=== PATIENT | female | born 1960 ===

== ENCOUNTER 2020-03-17 15:24 | Inpatient (IN) ==
[~2020-03-17 15:24] MED LIST: Dexamethasone IV 4 MG/ML VIAL 1 ml VIAL ONE; Midazolam 2 mg/2 ml VIAL 1 mg/ml 2 ml VIAL (2 mg) ONE; Ondansetron 4 mg VIAL 2 MG/ML 2 ml VIAL ONE; Propofol 10 MG/ML 20 ML BTL ONE; fentaNYL 100 mcg/2 ml 50 MCG/ML VIAL ONE
[2020-03-17] MEDS ORDERED: Naloxone 0.4 mg VIAL 0.4 mg/ml 1 ml VIAL IV PRN (17:39)
[2020-03-17] MEDS ORDERED: HYDROcodone/ACETAMIN 5/325 mg TAB PO PRN (17:39)
[2020-03-17] MEDS ORDERED: Prochlorperazine 5 mg/ml 2 ml VIAL (10 mg) IV PRN (17:39)
[2020-03-17] MEDS ORDERED: Lidocaine 2% PF 5 ML VIAL ONE (17:51)
[2020-03-17] MEDS ORDERED: fentaNYL 100 mcg/2 ml 50 MCG/ML VIAL ONE ×3 (17:51→20:06)
[2020-03-17] MEDS ORDERED: Midazolam 2 mg/2 ml VIAL 1 mg/ml 2 ml VIAL (2 mg) ONE (17:51)
[2020-03-17] MEDS ORDERED: Propofol 10 MG/ML 20 ML BTL ONE (17:53)
[2020-03-17] MEDS ORDERED: Lactulose 30 ml UDC PO PRN (17:56)
[2020-03-17] MEDS ORDERED: diPHENhydraMINE IV 50 MG/ML 1 ml VIAL (BENADRYL) IV PRN (17:56)
[2020-03-17] MEDS ORDERED: Ondansetron 4 mg VIAL 2 MG/ML 2 ml VIAL IV PRN (17:56)
[2020-03-17] MEDS ORDERED: Magnesium Hydroxide LIQ 30 ML UDC PO PRN (17:56)
[2020-03-17] MEDS ORDERED: diPHENhydraMINE 25 mg TAB PO PRN (17:56)
[2020-03-17] MEDS ORDERED: oxyCODONE/Acetamin 5/325 mg TAB PO PRN ×2 (17:56)
[2020-03-17] MEDS ORDERED: Ondansetron ODT 4 mg TAB 4 MG TAB PO PRN (17:56)
[2020-03-17] MEDS ORDERED: Morphine 2 MG/ML SYRINGE IV PRN (17:56)
[2020-03-17] MEDS ORDERED: Dexamethasone IV 4 MG/ML VIAL 1 ml VIAL ONE (18:31)
[2020-03-17] MEDS ORDERED: Ketamine HCL 50 mg/ml 10 ml VIAL (500 MG) ONE (18:42)
[2020-03-17] MEDS ORDERED: ceFAZolin VIAL VIAL ONE (19:07)
[2020-03-17] MEDS ORDERED: ceFAZolin 2 GM PREMIX 2 GM/50 ML BAG ONE (19:09)
[2020-03-17] MEDS ORDERED: Ondansetron 4 mg VIAL 2 MG/ML 2 ml VIAL ONE (19:13)
[2020-03-17] MEDS: fentaNYL 100 mcg/2 ml 50 MCG/ML VIAL IV PRN ×2 (20:10→20:25)
[2020-03-17 20:49] LABS: ABS Basophils 0.1 10^3/ul (0-0.2); ABS Lymphocytes 0.8 10^3/ul (1.0-4.8); ABS Monocytes 0.5 10^3/ul (0-0.8); Eosinophil % 0.1 %; Hematocrit 32 % (35-47); Hemoglobin 10.7 g/dL (12.0-16.0); Lymphocyte % 4.6 %; Mean Corpuscular HGB Conc 33 g/dL (31-36); Mean Corpuscular Hemoglobin 28 pg (27-31); Mean Corpuscular Volume 85 fL (80-97); Mean Platelet Volume 8.7 fL (7.4-10.4); Platelet Count 258 10^3/uL (150-450); Red Blood Count 3.83 10^6 /uL (3.70-4.87); Red Cell Distribution Width 13 % (10-15); White Blood Count 16.3 10^3/uL (3.5-10.8)
[2020-03-17] MEDS: Lactated Ringers 1000 ml BAG 1,000 ML IV SCH (22:32)
[2020-03-18] MEDS: ceFAZolin 1 GM ADVAN 1 GM in NS 0.9% 50 ML 50 ML IVPB SCH ×3 (03:04→20:22)
[2020-03-18 05:02] LABS: ABS Lymphocytes 0.4 10^3/ul (1.0-4.8); ABS Monocytes 0.4 10^3/ul (0-0.8); ABS Neutrophils 11.9 10^3/ul (1.5-7.7); Hematocrit 32 % (35-47); Hemoglobin 10.8 g/dL (12.0-16.0); Lymphocyte % 3.4 %; Mean Corpuscular HGB Conc 33 g/dL (31-36); Mean Corpuscular Hemoglobin 28 pg (27-31); Mean Corpuscular Volume 84 fL (80-97); Mean Platelet Volume 8.4 fL (7.4-10.4); Platelet Count 299 10^3/uL (150-450); Red Blood Count 3.85 10^6 /uL (3.70-4.87); Red Cell Distribution Width 13 % (10-15); White Blood Count 12.7 10^3/uL (3.5-10.8)
[2020-03-18 05:14] LABS: BUN/Creatinine Ratio 22.2 (8-20); Calcium 9.5 mg/dL (8.6-10.3); EGFR Non-African American 96.7 (>60); Potassium 4.3 mmol/L (3.5-5.0)
[2020-03-18] MEDS: Vitamin THERAPEUTIC TAB PO SCH (09:01)
[2020-03-18] MEDS: Lactated Ringers 1000 ml BAG 1,000 ML IV SCH (09:04)
[2020-03-19] MEDS: ceFAZolin 1 GM ADVAN 1 GM in NS 0.9% 50 ML 50 ML IVPB SCH (03:30)
[2020-03-19 07:14] LABS: ABS Eosinophils 0.1 10^3/ul (0-0.6); ABS Monocytes 0.6 10^3/ul (0-0.8); ABS Neutrophils 6.4 10^3/ul (1.5-7.7); Eosinophil % 0.7 %; Hematocrit 30 % (35-47); Lymphocyte % 22.1 %; Mean Corpuscular HGB Conc 33 g/dL (31-36); Mean Corpuscular Hemoglobin 28 pg (27-31); Mean Corpuscular Volume 85 fL (80-97); Mean Platelet Volume 8.9 fL (7.4-10.4); Platelet Count 284 10^3/uL (150-450); Red Blood Count 3.56 10^6 /uL (3.70-4.87); Red Cell Distribution Width 13 % (10-15); White Blood Count 9.1 10^3/uL (3.5-10.8)
[2020-03-19 07:30] LABS: C Reactive Protein 70.62 mg/L (<8.01); Calcium 9.3 mg/dL (8.6-10.3); EGFR African American 121.5 (>60); EGFR Non-African American 100.4 (>60); Potassium 4.2 mmol/L (3.5-5.0)
[2020-03-19] MEDS: Vitamin THERAPEUTIC TAB PO SCH (09:18)
[2020-03-19] MEDS ORDERED: NS 0.9% 1000 ml BAG 1,000 ML IV SCH (10:30)
[2020-03-19] MEDS: cefTRIAXone 2 GM ADDV.VIAL 2 GM in NS 0.9% 100 ml BAG 100 ML IV SCH (11:56)
[2020-03-20 05:48] LABS: ABS Eosinophils 0.1 10^3/ul (0-0.6); ABS Lymphocytes 1.9 10^3/ul (1.0-4.8); ABS Monocytes 0.5 10^3/ul (0-0.8); ABS Neutrophils 4.2 10^3/ul (1.5-7.7); Eosinophil % 1.6 %; Hematocrit 34 % (35-47); Hemoglobin 11.2 g/dL (12.0-16.0); Lymphocyte % 29.1 %; Mean Corpuscular HGB Conc 33 g/dL (31-36); Mean Corpuscular Hemoglobin 27 pg (27-31); Mean Corpuscular Volume 84 fL (80-97); Platelet Count 370 10^3/uL (150-450); Red Blood Count 4.09 10^6 /uL (3.70-4.87); Red Cell Distribution Width 13 % (10-15); White Blood Count 6.7 10^3/uL (3.5-10.8)
[2020-03-20 06:07] LABS: BUN/Creatinine Ratio 17.7 (8-20); C Reactive Protein 34.7 mg/L (<8.01); Calcium 9.8 mg/dL (8.6-10.3); EGFR African American 119.2 (>60); EGFR Non-African American 98.5 (>60); Potassium 4.1 mmol/L (3.5-5.0)
[2020-03-20] MEDS: Vitamin THERAPEUTIC TAB PO SCH (09:57)
[2020-03-20] MEDS: cefTRIAXone 2 GM ADDV.VIAL 2 GM in NS 0.9% 100 ml BAG 100 ML IV SCH (11:43)
[2020-03-20] MEDS ORDERED: Buffered Lidocaine 1% SYRIN 1 ml INTRADERM ONE (11:43)
[2020-03-20 11:44] VITALS: BP 148/90
== END 2020-03-20 16:25 | disposition home health service (06) | DRG 711 ==
LOC: OR 15:24 → SSU 21:08
PROVIDERS: ADMIT Orthopaedic Surgery; ATTEND Orthopaedic Surgery

== ENCOUNTER 2021-05-26 17:01 | Observation (INO) ==
[2021-05-26 18:43] LABS: ABS Lymphocytes 0.5 10^3/ul (1.0-4.8); ABS Monocytes 0.9 10^3/ul (0-0.8); ABS Neutrophils 14.1 10^3/ul (1.5-7.7); Eosinophil % 0.1 %; Hematocrit 36 % (35-47); Hemoglobin 11.7 g/dL (12.0-16.0); Lymphocyte % 3.5 %; Mean Corpuscular HGB Conc 33 g/dL (31-36); Mean Corpuscular Hemoglobin 28 pg (27-31); Mean Corpuscular Volume 86 fL (80-97); Mean Platelet Volume 8.3 fL (7.4-10.4); Platelet Count 276 10^3/uL (150-450); Red Blood Count 4.19 10^6 /uL (3.70-4.87); Red Cell Distribution Width 13 % (10-15); White Blood Count 15.5 10^3/uL (3.5-10.8)
[2021-05-26 19:24] LABS: ALT 28 U/L (7-52); AST 23 U/L (13-39); Albumin 4.7 g/dL (3.2-5.2); Albumin/Globulin Ratio 2.4 (1-3); Alkaline Phosphatase 57 U/L (35-149); Anion Gap 10 mmol/L (2-11); Blood Urea Nitrogen 19 mg/dL (6-24); C Reactive Protein 2.43 mg/L (<8.01); CO2 Carbon Dioxide 22 mmol/L (22-32); Calcium 9.2 mg/dL (8.6-10.3); Chloride 103 mmol/L (101-111); Glucose 103 mg/dL (70-100); Lipase < 10 U/L (11.0-82.0); Sodium 135 mmol/L (135-145); Total Protein 6.7 g/dL (6.4-8.9); eGFR CKD-EPI 102.3 (>60)
[2021-05-26] MEDS ORDERED: Lactated Ringers 1000 ml BAG 1,000 ML IV ONE (19:31)
[2021-05-26] MEDS ORDERED: Morphine 4 MG/ML VIAL (1 ml) IV ONE (19:31)
[2021-05-26] MEDS ORDERED: Droperidol 5 MG/2 ML 2 ML VIAL IV ONE (20:45)
[2021-05-26] MEDS ORDERED: Iohexol 300 (CONTRAST) 10 ML SDV IV ONE (20:50)
[2021-05-26] MEDS: Morphine 4 MG/ML VIAL (1 ml) IV PRN (21:09)
[2021-05-26] MEDS ORDERED: Piperacillin/Tazobac ADVAN 3.375 GM in NS 0.9% 100 ml BAG 100 ML IV ONE (22:19)
[2021-05-26] MEDS ORDERED: HYDROmorphone 1 MG/1 ML SYRINGE IV SLOW PU PRN (22:27)
[2021-05-26] MEDS ORDERED: Ondansetron 4 mg VIAL 2 MG/ML 2 ml VIAL IV PRN (22:27)
[2021-05-26] MEDS ORDERED: NS 0.9% 1000 ml BAG 1,000 ML IV SCH (22:45)
[2021-05-26 23:38] LABS: Urine Appearance Clear; Urine Bilirubin Negative (Negative); Urine Blood Negative (Negative); Urine Color Yellow; Urine Glucose Negative (Negative); Urine Ketones 1+ (Negative); Urine Nitrite Negative (Negative); Urine Protein Negative (Negative); Urine Urobilinogen Negative (Negative)
[2021-05-26 23:44] LABS: Urine Specific Gravity > 1.060 (1.002-1.030)
[2021-05-27] MEDS ORDERED: Piperacillin/Tazobactam VIAL 3.375 GM in NS 0.9% 100 ml BAG 100 ML IVPB SCH (03:30)
[2021-05-27] MEDS: Morphine 4 MG/ML VIAL (1 ml) IV PRN (05:25)
[2021-05-27] MEDS ORDERED: Bupivacaine 0.25% w/EPI 10 ML SDV ONE (08:06)
[2021-05-27] MEDS ORDERED: Succinylcholine 200 mg VIAL 20 mg/ml 10 ml VIAL (200 mg) ONE (08:07)
[2021-05-27] MEDS ORDERED: Ondansetron 4 mg VIAL 2 MG/ML 2 ml VIAL ONE ×2 (08:07→11:50)
[2021-05-27] MEDS ORDERED: Dexamethasone IV 4 MG/ML VIAL 1 ml VIAL ONE (08:07)
[2021-05-27] MEDS ORDERED: Propofol 10 MG/ML 20 ML BTL ONE (08:07)
[2021-05-27] MEDS ORDERED: Midazolam 2 mg/2 ml VIAL 1 mg/ml 2 ml VIAL (2 mg) ONE (08:08)
[2021-05-27] MEDS ORDERED: fentaNYL 100 mcg/2 ml 50 MCG/ML VIAL ONE (08:08)
[2021-05-27] MEDS ORDERED: Sodium Citrate/Citric Acid LIQ 15 ML UDC PO ONE (08:20)
[2021-05-27] MEDS ORDERED: Buffered Lidocaine 1% SYRIN 1 ml INTRADERM ONE (08:20)
[2021-05-27] MEDS ORDERED: Sodium Citrate/Citric Acid LIQ 15 ML UDC ONE (08:38)
[2021-05-27] MEDS ORDERED: Lactated Ringers 1000 ml BAG 1,000 ML IV SCH (09:00)
[2021-05-27] MEDS ORDERED: Rocuronium 50 mg VIAL 10 mg/ml 5 ml VIAL (50 mg) ONE (09:17)
[2021-05-27] MEDS ORDERED: Sugammadex 500 MG/5 ML 5 ml VIAL IV PUSH ONE (09:35)
[2021-05-27] MEDS ORDERED: HYDROcodone/ACETAMIN 5/325 mg TAB PO PRN (10:45)
[2021-05-27] MEDS ORDERED: Naloxone 0.4 mg VIAL 0.4 mg/ml 1 ml VIAL IV PRN (10:45)
[2021-05-27] MEDS ORDERED: Metoclopramide 5 MG/ML VIAL (10 mg) IV PRN (10:45)
[2021-05-27] MEDS ORDERED: Ondansetron 4 mg VIAL 2 MG/ML 2 ml VIAL IV PRN (10:45)
[2021-05-27] MEDS ORDERED: fentaNYL 100 mcg/2 ml 50 MCG/ML VIAL IV PRN (10:45)
[2021-05-27] MEDS ORDERED: Metoclopramide 5 MG/ML VIAL (10 mg) ONE (12:06)
[2021-05-27 12:32] VITALS: BP 128/84
== END 2021-05-27 13:30 | disposition short-term general hospital (02) ==
LOC: ED 17:01 → EDHOLD 17:01 → SSU 05-27 00:52
PROVIDERS: ADMIT Surgery; ATTEND Surgery